=== PATIENT | male | born 1990 | race Two or more races ===

== ENCOUNTER 2018-10-24 10:40 | Emergency (ER) | payer OTHER ==
[~2018-10-24] VITALS: Ht 177.8 cm; Wt 116.1 kg
[2018-10-24 10:44] VITALS: BP 159/107
[2018-10-24] MEDS ORDERED: ACETAMINOPHEN ES 500 MG TABLET PO ONE (11:30)
[2018-10-24] MEDS ORDERED: ACETAMINOPHEN ES 500 MG TABLET ONE (11:50)
== END 2018-10-24 12:12 | disposition home or self-care (01) ==
LOC: ER 10:42
DX: S39.012A Strain of muscle, fascia and tendon of lower back, initial encounter (principal); S13.8XXA Sprain of joints and ligaments of other parts of neck, initial encounter; Z88.6 Allergy status to analgesic agent; V49.49XA Driver injured in collision with other motor vehicles in traffic accident, initial encounter; Y93.89 Activity, other specified; Y92.410 Unspecified street and highway as the place of occurrence of the external cause; Y99.8 Other external cause status
CPT/HCPCS: 72100; 99283; A4606; Z7610